=== PATIENT | male | born 1985 | race Caucasian/White ===

== ENCOUNTER 2019-01-26 09:39 | Inpatient (IN) | payer OTHER ==
[2019-01-26 11:22] VITALS: BMI 18.4
--- NOTE | 2019-01-26 12:49 | HP ---
CIWA Score Nausea/Vomitin Muscle Tremors: 2 Anxiety: 2 Agitation: 2 Paroxysmal Sweats: 1-Minimal Palms Moist Orientation: 0-Oriented Tacttile Disturbances: 1-Very Mild Itch/Numbness Auditory Disturbances: 1-Very Mild Visual Disturbances: 0-None Headache: 2-Mild CIWA-Ar Total Score: 13 - Admission Criteria [facility] Guidelines: Admission for Medically Managed Detox: Requires at least one of the followin. CIWA greater than 12 2. Seizures within the past 24 hours 3. Delirium tremens within the past 24 hours 4. Hallucinations within the past 24 hours 5. Acute intervention needed for co occurring medical disorder 6. Acute intervention needed for co occurring psychiatric disorder 7. Severe withdrawal that cannot be handled at a lower level of care (continued vomiting, continued diarrhea, abnormal vital signs) requiring intravenous medication and/or fluids 8. Admission ROS S - HPI Chief Complaint: i need help to stop drinking alcohol,heroin anused,marijuana,anf mmtp 140 mgs/ day Allergies/Adverse Reactions: Allergies Allergy/AdvReac Type Severity Reaction Status Date / Time Fish Containing Products Allergy Severe Difficulty Verified 01/26/19 11:05 Breathing No Known Drug Allergies Allergy Verified 01/26/19 13:20 History of Present Illness: this 33 years olfd male with alcohol,marijuana dependence,heroin abused,mmttp 140 mgs/day withdrawal symptom, seizure last 06/26 nicotine dependence 12/pack/ requesting gum weight loss ptsd,anxiety,depression,addh, no significant period of sobriety Exam Limitations: No Limitations - Ebola screening Have you traveled outside of the country in the last 21 days: No (N) Have you had contact with anyone from an Ebola affected area: No Do you have a fever: No - Review of Systems Constitutional: Loss of Appetite, Malaise, Night Sweats, Changes in sleep, Unintentional Wgt. Loss EENT: reports: Tearing, Nose Congestion Respiratory: reports: No Symptoms reported Cardiac: reports: No Symptoms Reported GI: reports: Nausea, Vomiting, Abdominal cramping : reports: No Symptoms Reported Musculoskeletal: reports: Back Pain, Joint Pain, Muscle Pain, Joint Stiffness Integumentary: reports: Dryness Neuro: reports: Headache, Tremors Endocrine: reports: No Symptoms Reported Hematology: reports: No Symptoms Reported Psychiatric: reports: No Sypmtoms Reported, Judgement Intact, Mood/Affect Appropiate, Orientated x3, Anxious (ptsd), Depressed, other Other Systems: Reviewed and Negative Patient History - Patient Medical History Hx Anemia: No Hx Asthma: No Hx Chronic Obstructive Pulmonary Disease (COPD): No Hx Cancer: No Hx Cardiac Disorders: No Hx Congestive Heart Failure: No Hx Hypertension: No Hx Hypercholesterolemia: No Hx Pacemaker: No HX Cerebrovascular Accident: No Hx Seizures: Yes (last 06/26) Hx Dementia: No Hx Diabetes: No Hx Gastrointestinal Disorders: No Hx Liver Disease: No Hx Genitourinary Disorders: No Hx Sexually Transmitted Disorders: No Hx Renal Disease (ESRD): No Hx Thyroid Disease: No Hx Human Immunodeficiency Virus (HIV): No (last 01/25 negative) Hx Hepatitis C: No Hx Depression: Yes (anxeity,ptsd,adhd,insomnia) Hx Suicide Attempt: No Hx Bipolar Disorder: No Hx Schizophrenia: No Other Medical History: no suicidal,no homicidal - PPD History Previous Implant?: Yes Documented Results: Negative w/o proof Implanted On Prior [facility] Admission?: No PPD to be Administered?: Yes - Smoking Cessation Smoking history: Current every day smoker Have you smoked in the past 12 months: Yes Aproximately how many cigarettes per day: 10 Cigars Per Day: 0 Hx Chewing Tobacco Use: No Initiated information on smoking cessation: Yes 'Breaking Loose' booklet given: 01/26/19 - Substance & Tx. History Hx Alcohol Use: Yes Hx Substance Use: Yes Substance Use Type: Alcohol, Heroin, Marijuana Hx Substance Use Treatment: Yes ([facility] 01/25 completed) - Substances abused Heroin Substance route: Inhalation Frequency: Daily Amount used: 3-4 bags per day Age of first use: 15 Date of last use: 01/25/19 Alcohol Substance route: Oral Frequency: Daily Amount used: 1pint of vodka/ 2 of 6 packs of 12 ozs of beer Age of first use: 12 Date of last use: 01/26/19 Marijuana/Hashish Substance route: Smoking Frequency: Daily Amount used: 20$ Age of first use: 12 Date of last use: 01/26/19 Family Disease History - Family Disease History Family Disease History: Other: Father (alcohol) Admission Physical Exam [facility] - Vital Signs Vital Signs: Vital Signs - 24 hr 01/26/19 01/26/19 11:18 11:53 Temperature 98.4 F 98.4 F Pulse Rate 78 78 Respiratory 20 20 Rate Blood Pressure 104/66 104/66 - Physical General Appearance: Yes: Moderate Distress, Tremorous, Irritable, Sweating, Anxious HEENTM: Yes: Normocephalic, SHAN[place]N, Pharynx Normal Respiratory: Yes: Lungs Clear, Normal Breath Sounds, No Respiratory Distress Neck: Yes: Within Normal Limits, Supple, Trachea in good position Breast: Yes: Within Normal Limits Cardiology: Yes: Within Normal Limits, Regular Rhythm, Regular Rate, S1, S2 Abdominal: Yes: Within Normal Limits, Normal Bowel Sounds, Non Tender, Flat, Soft Genitourinary: Yes: Within Normal Limits Back: Yes: Within Normal Limits, Normal Inspection, Muscle Spasm Musculoskeletal: Yes: full range of Motion, Back pain, Muscle Pain Extremities: Yes: Within Normal Limits, Normal Range of Motion, Tremors Neurological: Yes: obstetric assistant II-XII NML intact, Fully Oriented, Alert, Motor Strength 5/5 Integumentary: Yes: Dry, Rash (furunculitis) Lymphatic: Yes: Within Normal Limits - Diagnostic (1) Alcohol dependence with uncomplicated withdrawal Current Visit: Yes Status: Acute (2) Cannabis dependence Current Visit: Yes Status: Chronic (3) Heroin abuse Current Visit: Yes Status: Acute (4) Methadone maintenance therapy patient Current Visit: Yes Status: Acute (5) Seizure Current Visit: Yes Status: Acute (6) Dehydration Current Visit: Yes Status: Acute (7) Weight loss Current Visit: Yes Status: Acute (8) Furunculosis Current Visit: Yes Status: Acute Cleared for Admission [facility] - Detox or Rehab [facility] Level of Care: Medically Managed Detox Regimen/Protocol: Librium Breathalyzer - Breathalyzer Breathalyzer: 0 Urine Drug Screen - Test Device Lot number: [id number] Expiration date: 10/09/20 - Control Is test valid?: Yes - Results Drug screen NEGATIVE: No Urine drug screen results: THC-Marijuana, MTD-Methadone, BZO-Benzodiazepines Inpatient Rehab Admission - Rehab Decision to Admit Inpatient rehab admission?: No
[2019-01-26] MEDS ORDERED: chlordiazePOXIDE HCL 25 MG CAPSULE PO PRN (13:02)
[2019-01-26] MEDS ORDERED: MAG HYDROX/AL HYDROX/SIMETH 30 ML UNIT-DOSE CUP PO PRN (13:02)
[2019-01-26] MEDS ORDERED: MAGNESIUM CITRATE 300 ML BOTTLE PO PRN (13:02)
[2019-01-26] MEDS ORDERED: MENTHOL/PHENOL 1 EACH UD MM PRN (13:02)
[2019-01-26] MEDS ORDERED: METHOCARBAMOL 500 MG TABLET PO PRN (13:02)
[2019-01-26] MEDS ORDERED: IBUPROFEN 400 MG TABLET (FP) PO PRN (13:02)
[2019-01-26] MEDS ORDERED: MAGNESIUM HYDROX 2400MG/30ML ORAL SUSPENSION 30 ML CUP PO PRN (13:02)
[2019-01-26] MEDS ORDERED: hydrOXYzine PAMOATE 25 MG CAPSULE (FP) PO PRN (13:02)
[2019-01-26] MEDS ORDERED: BISMUTH SUBSALICYLATE 524 MG/30 ML UD PO PRN (13:02)
[2019-01-26] MEDS ORDERED: ACETAMINOPHEN 325 MG TABLET (FP) PO PRN (13:02)
--- NOTE | 2019-01-26 14:43 | CONSULT ---
[facility] Psychiatric Consult - Data Date of interview: 01/26/19 Admission source: [facility] Identifying data: First admission to [facility] for this 33 y/o male from [place] ancestry self-referred for detoxification (alcohol, cannabis, heroin ). Examined on . Patient is single, a father of one, homeless, unemployed and deprived of income. Substance Abuse History: Confirmed by the patient in this session. Details in current [facility] report as follows : Smoking history: Current every day smoker. Have you smoked in the past 12 months: Yes. Aproximately how many cigarettes per day: 10. Cigars Per Day: 0. Hx Chewing Tobacco Use: No. Initiated information on smoking cessation: Yes. 'Breaking Loose' booklet given: . - Substance & Tx. History. Hx Alcohol Use: Yes. Hx Substance Use: Yes. Substance Use Type: Alcohol, Heroin, Marijuana. Hx Substance Use Treatment: Yes ([facility] 01/25 completed). - Substances abused. Heroin. Substance route: Inhalation. Frequency: Daily. Amount used: 3-4 bags per day. Age of first use: 15. Date of last use: 01/25/19. Alcohol. Substance route: Oral. Frequency: Daily. Amount used: 1pint of vodka/ 2 of 6 packs of 12 ozs of beer. Age of first use: 12. Date of last use: 01/26/19. Marijuana/ Hashish. Substance route: Smoking. Frequency: Daily. Amount used: 20$. Age of first use: 12. Date of last use: 01/26/19 Medical History: Patient endorses good general health. History of dislocation of right shoulder and withdrawal-related seizures. Psychiatric History: No reported history of psychiatric hospitalizations. Patient is currently on methadone maintenance (140 mg/day) at the [facility] program in the [place]. Mr Lee sees a private psychiatrist for medication management (remeron 45 mg/hs + adderall and clonazepam (doses not recalled) and psychotherapy. Diagnosed with Anxiety Disorder, MDD, ADHD and PTSD. Patient denies history of suicide attempts. Physical/Sexual Abuse/Trauma History: Heavy stressors : recent deaths (one brother was allegedly murdered in 2010, several friends have of drug overdoes), history of incarceration (patient served six consecutive years in [facility]), homelessness, estrangement from relatives, financial difficulties, lack of vocational slills, chronic unemployment and addictions. Additional Comment: Urine drug screen results: THC-Marijuana, MTD-Methadone, BZO -Benzodiazepines. Noted. Mental Status Exam - Mental Status Exam Alert and Oriented to: Time, Place, Person Cognitive Function: Good Patient Appearance: Unkempt, Disheveled Mood: Nervous, Withdrawn, Anxious Affect: Mood Congruent, Constricted Patient Behavior: Fatigued, Appropriate, Cooperative Speech Pattern: Clear Voice Loudness: Normal Thought Process: Goal Oriented Thought Disorder: Not Present Hallucinations: Denies Suicidal Ideation: Denies Homicidal Ideation: Denies Insight/Judgement: Poor Sleep: Poorly, Difficulty falling asleep Appetite: Good Muscle strength/Tone: Normal Gait/Station: Normal Psychiatric Findings - Problem List ([place] 1, 2,3) (1) Alcohol dependence with uncomplicated withdrawal Current Visit: Yes Status: Acute (2) Opioid dependence on agonist therapy Current Visit: Yes Status: Chronic (3) Cannabis dependence Current Visit: Yes Status: Chronic (4) Substance induced mood disorder Current Visit: Yes Status: Chronic (5) Nicotine dependence Current Visit: Yes Status: Chronic (6) History of attention deficit hyperactivity disorder (ADHD) Current Visit: Yes Status: Chronic (7) History of posttraumatic stress disorder (PTSD) Current Visit: Yes Status: Chronic (8) Insomnia Current Visit: Yes Status: Chronic (9) Non-compliance Current Visit: Yes Status: Chronic - Initial Treatment Plan Initial Treatment Plan: Psychoeducation. Sleep hygiene. Detoxification. AA/NA meetings. Groups. Patient reports that he has NOT taken his medications for more than a week (belongings reportedly stolen). Remeron 15 mg po hs (reduced). Side effects/benefits discussed. verbal consent given to MD. Cabello.
[2019-01-26] MEDS: GABAPENTIN 400 MG CAPSULE (FP) PO SCH ×2 (15:07→22:33)
[2019-01-26] MEDS: BACITRACIN 0.9 GM PACKET TP SCH ×2 (15:07→22:35)
[2019-01-26] MEDS: NICOTINE POLACRILEX 2 MG GUM BUC PRN (15:14)
[2019-01-26 18:08] LABS: URINE APPEARANCE CLEAR; URINE BILIRUBIN NEGATIVE (NEGATIVE); URINE COLOR YELLOW; URINE GLUCOSE (UA) NEGATIVE (NEGATIVE); URINE KETONE NEGATIVE (NEGATIVE); URINE LEUK ESTERASE NEGATIVE (NEGATIVE); URINE NITRITE NEGATIVE (NEGATIVE); URINE PROTEIN NEGATIVE (NEGATIVE); URINE UROBILINOGEN 0.2 mg/dL (0.2-1.0)
[2019-01-26] MEDS: chlordiazePOXIDE HCL 25 MG CAPSULE PO SCH ×2 (18:18→22:33)
[2019-01-26 18:21] LABS: HEMATOCRIT 43.9 % (35.4-49); HEMOGLOBIN 14.5 GM/dL (11.7-16.9); MCH 30.2 pg (25.7-33.7); MEAN CELL VOLUME 91.6 fl (80-96); MEAN PLT VOLUME 9.5 fl (7.5-11.1); PLATELET COUNT 315 K/MM3 (134-434); RBC 4.79 M/mm3 (4.00-5.60); RDW 14.6 % (11.9-15.9); WHITE BLOOD COUNT 8.8 K/mm3 (4.0-10.0)
[2019-01-26 18:26] LABS: ALBUMIN 4.1 g/dl (3.4-5.0); BILIRUBIN,TOTAL 0.3 mg/dL (0.2-1); CALCIUM 9.3 mg/dL (8.5-10.1); CREATININE 0.7 mg/dL (0.55-1.3); POTASSIUM 4.5 mmol/L (3.5-5.1); TOT PROT 7.4 g/dl (6.4-8.2)
[2019-01-26] MEDS: DOXYCYCLINE HYCLATE 100 MG TABLET PO SCH (19:19)
[2019-01-26] MEDS: THIAMINE HCL 100 MG TABLET (FP) PO SCH (22:34)
[2019-01-26] MEDS: MIRTAZAPINE 15 MG TABLET (FP) PO SCH (22:34)
[2019-01-27] MEDS ORDERED: METHADONE HCL 10 MG TABLET ONE (04:44)
[2019-01-27] MEDS ORDERED: METHADONE HCL 40 MG DISPERSABLE TABLET ONE (04:45)
[2019-01-27] MEDS: METHADONE 120 MG, METHADONE 20 MG PO SCH (06:00)
[2019-01-27] MEDS: DOXYCYCLINE HYCLATE 100 MG TABLET PO SCH ×2 (06:00→17:43)
[2019-01-27] MEDS: chlordiazePOXIDE HCL 25 MG CAPSULE PO SCH ×4 (06:00→22:27)
[2019-01-27] MEDS ORDERED: METHADONE HCL 10 MG TABLET PO SCH (06:00)
[2019-01-27] MEDS: GABAPENTIN 400 MG CAPSULE (FP) PO SCH ×3 (07:53→22:26)
--- NOTE | 2019-01-27 09:56 | PN ---
S CIWA - CIWA Score Nausea/Vomitin-No Nausea/No Vomiting Muscle Tremors: 4-Moderate,w/Arms Extend Anxiety: 4-Mod. Anxious/Guarded Agitation: 4-Moderately Restless Paroxysmal Sweats: 3 Orientation: 0-Oriented Tacttile Disturbances: 0-None Auditory Disturbances: 0-None Visual Disturbances: 0-None Headache: 0-None Present CIWA-Ar Total Score: 15 BHS Progress Note (SOAP) Subjective: restless sweats shakes interrupted sleep chills Objective: 01/27/19 09:55 Vital Signs Temperature 97.9 F 01/27/19 09:26 Pulse Rate 105 H 01/27/19 09:26 Respiratory Rate 18 01/27/19 09:26 Blood Pressure 106/73 01/27/19 09:26 O2 Sat by Pulse Oximetry (%) Laboratory Tests 01/26/19 01/26/19 01/26/19 13:00 13:00 13:00 WBC 8.8 RBC 4.79 Hgb 14.5 Hct 43.9 MCV 91.6 MCH 30.2 MCHC 33.0 RDW 14.6 Plt Count 315 MPV 9.5 Sodium 139 Potassium 4.5 Chloride 100 Carbon Dioxide 34 H Anion Gap 5 L BUN 7 Creatinine 0.7 Est GFR (CKD-EPI)AfAm 144.72 Est GFR (CKD-EPI)NonAf 124.87 Random Glucose 77 Calcium 9.3 Total Bilirubin 0.3 AST 19 ALT 32 Alkaline Phosphatase 79 Total Protein 7.4 Albumin 4.1 Urine Color Urine Appearance Urine pH Ur Specific [place] Urine Protein Urine Glucose (UA) Urine Ketones Urine Blood Urine Nitrite Urine Bilirubin Urine Urobilinogen Ur Leukocyte Esterase RPR Titer Nonreactive HIV 1&2 Antibody Screen HIV P24 Antigen 01/26/19 01/26/19 13:00 15:28 WBC RBC Hgb Hct MCV MCH MCHC RDW Plt Count MPV Sodium Potassium Chloride Carbon Dioxide Anion Gap BUN Creatinine Est GFR (CKD-EPI)AfAm Est GFR (CKD-EPI)NonAf Random Glucose Calcium Total Bilirubin AST ALT Alkaline Phosphatase Total Protein Albumin Urine Color Yellow Urine Appearance Clear Urine pH 7.0 Ur Specific [place] 1.005 L Urine Protein Negative Urine Glucose (UA) Negative Urine Ketones Negative Urine Blood Negative Urine Nitrite Negative Urine Bilirubin Negative Urine Urobilinogen 0.2 Ur Leukocyte Esterase Negative RPR Titer HIV 1&2 Antibody Screen Negative HIV P24 Antigen Negative labs noted aaox3 ambulating no acute distress Assessment: 01/27/19 09:55 withdrawal sx Plan: continue detox increase fluids
[2019-01-27] MEDS: BACITRACIN 0.9 GM PACKET TP SCH ×2 (10:40→22:26)
[2019-01-27] MEDS: PRENATAL VITAMINS W/ FOLIC ACID TABLET (FP) PO SCH (10:40)
[2019-01-27] MEDS: ACETAMINOPHEN 325 MG TABLET (FP) PO PRN (10:42)
[2019-01-27] MEDS ORDERED: PNEUMOCOCCAL 23 VACCINE 0.5 ML VIAL IM ONE (12:00)
[2019-01-27] MEDS ORDERED: PNEUMOC 13-VAL CONJ-DIP CRM/PF 0.5 ML DISP.SYRIN IM ONE (12:00)
--- NOTE | 2019-01-27 12:14 | EKG ---
Test Reason : Blood Pressure : / mmHG Vent. Rate : 060 BPM Atrial Rate : 060 BPM P-R Int : 124 ms QRS Dur : 096 ms QT Int : 424 ms P-R-T Axes : 078 089 076 degrees QTc Int : 424 ms NORMAL SINUS RHYTHM WITH SINUS ARRHYTHMIA EARLY REPOLARIZATION NORMAL ECG NO PREVIOUS ECGS AVAILABLE Confirmed by MD Sean, Blair ([id number]) on 01/27/2019 12:14:26 PM Referred By: Confirmed By:Blair Estrada MD
[2019-01-27] MEDS: NICOTINE POLACRILEX 2 MG GUM BUC PRN (14:35)
[2019-01-27] MEDS: THIAMINE HCL 100 MG TABLET (FP) PO SCH (22:27)
[2019-01-27] MEDS: MELATONIN 5 MG TABLETS PO PRN (22:27)
[2019-01-27] MEDS: MIRTAZAPINE 15 MG TABLET (FP) PO SCH (22:27)
[2019-01-28] MEDS ORDERED: METHADONE HCL 10 MG TABLET ONE (04:34)
[2019-01-28] MEDS ORDERED: METHADONE HCL 40 MG DISPERSABLE TABLET ONE (04:35)
[2019-01-28] MEDS: chlordiazePOXIDE HCL 25 MG CAPSULE PO SCH ×2 (06:15→10:28)
[2019-01-28] MEDS: METHADONE 120 MG, METHADONE 20 MG PO SCH (06:15)
[2019-01-28] MEDS: GABAPENTIN 400 MG CAPSULE (FP) PO SCH ×3 (07:31→22:15)
[2019-01-28] MEDS: DOXYCYCLINE HYCLATE 100 MG TABLET PO SCH ×2 (07:31→22:14)
--- NOTE | 2019-01-28 10:23 | PN ---
[facility] CIWA - CIWA Score Nausea/Vomitin-No Nausea/No Vomiting Muscle Tremors: 3 Anxiety: 2 Agitation: 3 Paroxysmal Sweats: 2 Orientation: 0-Oriented Tacttile Disturbances: 0-None Auditory Disturbances: 0-None Visual Disturbances: 0-None Headache: 0-None Present CIWA-Ar Total Score: 10 S Progress Note (SOAP) Subjective: headache restless Objective: 01/28/19 10:22 Vital Signs Temperature 97.9 F 01/28/19 07:44 Pulse Rate 64 01/28/19 07:44 Respiratory Rate 18 01/28/19 07:44 Blood Pressure 112/77 01/28/19 07:44 O2 Sat by Pulse Oximetry (%) Laboratory Tests 01/26/19 01/26/19 01/26/19 13:00 13:00 13:00 WBC 8.8 RBC 4.79 Hgb 14.5 Hct 43.9 MCV 91.6 MCH 30.2 MCHC 33.0 RDW 14.6 Plt Count 315 MPV 9.5 Sodium 139 Potassium 4.5 Chloride 100 Carbon Dioxide 34 H Anion Gap 5 L BUN 7 Creatinine 0.7 Est GFR (CKD-EPI)AfAm 144.72 Est GFR (CKD-EPI)NonAf 124.87 Random Glucose 77 Calcium 9.3 Total Bilirubin 0.3 AST 19 ALT 32 Alkaline Phosphatase 79 Total Protein 7.4 Albumin 4.1 Urine Color Urine Appearance Urine pH Ur Specific [place] Urine Protein Urine Glucose (UA) Urine Ketones Urine Blood Urine Nitrite Urine Bilirubin Urine Urobilinogen Ur Leukocyte Esterase RPR Titer Nonreactive HIV 1&2 Antibody Screen HIV P24 Antigen 01/26/19 01/26/19 13:00 15:28 WBC RBC Hgb Hct MCV MCH MCHC RDW Plt Count MPV Sodium Potassium Chloride Carbon Dioxide Anion Gap BUN Creatinine Est GFR (CKD-EPI)AfAm Est GFR (CKD-EPI)NonAf Random Glucose Calcium Total Bilirubin AST ALT Alkaline Phosphatase Total Protein Albumin Urine Color Yellow Urine Appearance Clear Urine pH 7.0 Ur Specific [place] 1.005 L Urine Protein Negative Urine Glucose (UA) Negative Urine Ketones Negative Urine Blood Negative Urine Nitrite Negative Urine Bilirubin Negative Urine Urobilinogen 0.2 Ur Leukocyte Esterase Negative RPR Titer HIV 1&2 Antibody Screen Negative HIV P24 Antigen Negative aaox3 ambulating no acute distress Assessment: 01/28/19 10:22 mild withdrawal sx Plan: continue detox with revised detox medication as per pt request tylenol/motrin prn increase fluids d/c in am as per pt request
[2019-01-28] MEDS: BACITRACIN 0.9 GM PACKET TP SCH ×2 (10:28→22:15)
[2019-01-28] MEDS: PRENATAL VITAMINS W/ FOLIC ACID TABLET (FP) PO SCH (10:29)
[2019-01-28] MEDS ORDERED: chlordiazePOXIDE HCL 10 MG CAPSULE PO PRN (17:00)
[2019-01-28] MEDS: chlordiazePOXIDE HCL 10 MG CAPSULE PO SCH ×2 (17:47→22:15)
[2019-01-28] MEDS: THIAMINE HCL 100 MG TABLET (FP) PO SCH (22:15)
[2019-01-28] MEDS: MIRTAZAPINE 15 MG TABLET (FP) PO SCH (22:15)
[2019-01-28] MEDS: MELATONIN 5 MG TABLETS PO PRN (22:15)
[2019-01-28] MEDS: ACETAMINOPHEN 325 MG TABLET (FP) PO PRN (22:17)
[2019-01-29] MEDS ORDERED: METHADONE HCL 40 MG DISPERSABLE TABLET ONE (04:22)
[2019-01-29] MEDS ORDERED: METHADONE HCL 10 MG TABLET ONE (04:22)
[2019-01-29] MEDS: METHADONE 120 MG, METHADONE 20 MG PO SCH (06:43)
[2019-01-29] MEDS: DOXYCYCLINE HYCLATE 100 MG TABLET PO SCH (06:43)
[2019-01-29] MEDS: chlordiazePOXIDE HCL 10 MG CAPSULE PO SCH (06:44)
[2019-01-29] MEDS: GABAPENTIN 400 MG CAPSULE (FP) PO SCH (06:44)
[2019-01-29 07:55] VITALS: BP 108/60; PULSE 78; TEMP 98.1
[2019-01-29] MEDS ORDERED: chlordiazePOXIDE HCL 10 MG CAPSULE PO SCH (17:00)
== END 2019-01-29 08:53 | disposition home or self-care (01) | DRG 773 ==
LOC: YASAS 09:39 → Y6N 13:03
PROVIDERS: ADMIT Surgery; ATTEND Surgery
PROC: HZ2ZZZZ Detoxification Services for Substance Abuse Treatment (ICD-10-PCS; principal; 2019-01-26)
DX: F10.230 Alcohol dependence with withdrawal, uncomplicated (principal); F11.20 Opioid dependence, uncomplicated; F12.20 Cannabis dependence, uncomplicated; F17.210 Nicotine dependence, cigarettes, uncomplicated; F19.24 Other psychoactive substance dependence with psychoactive substance-induced mood disorder; L02.92 Furuncle, unspecified; G47.00 Insomnia, unspecified; R63.4 Abnormal weight loss; Z68.1 Body mass index [BMI] 19.9 or less, adult; E86.0 Dehydration; Z86.59 Personal history of other mental and behavioral disorders; Z86.69 Personal history of other diseases of the nervous system and sense organs; Z91.013 Allergy to seafood; Z91.19 Patient's noncompliance with other medical treatment and regimen
CPT/HCPCS: 36415; 80053; 81003; 85027; 86593; 87389; 93005; 93010

== ENCOUNTER 2022-06-25 14:33 | Inpatient (IN) | payer OTHER ==
[2022-06-25 15:19] VITALS: BMI 20.5
[2022-06-25] MEDS ORDERED: LOPERAMIDE HCL 2 MG CAPSULE PO PRN (17:40)
[2022-06-25] MEDS ORDERED: DICYCLOMINE HCL 10 MG CAPSULE PO PRN (17:40)
[2022-06-25] MEDS ORDERED: MAGNESIUM HYDROX 2400MG/30ML ORAL SUSPENSION 30 ML CUP PO PRN (17:40)
[2022-06-25] MEDS ORDERED: NALOXONE HCL 0.4 MG/ML VIAL IM PRN (17:40)
[2022-06-25] MEDS ORDERED: MAG HYDROX/AL HYDROX/SIMETH 30 ML UNIT-DOSE CUP PO PRN (17:40)
[2022-06-25] MEDS ORDERED: BENZOCAINE/MENTHOL (CHLORASEPTIC ) LOZENGE MM PRN (17:40)
[2022-06-25] MEDS ORDERED: MAGNESIUM CITRATE 300 ML BOTTLE PO PRN (17:40)
[2022-06-25] MEDS ORDERED: ACETAMINOPHEN 325 MG TABLET (FP) PO PRN ×2 (17:40)
[2022-06-25] MEDS ORDERED: ONDANSETRON *ODT* 4 MG TABLET SL PRN (17:40)
[2022-06-25] MEDS ORDERED: NALOXONE HCL (KLOXXADO) 8 MG SPRAY NS PRN (17:40)
[2022-06-25] MEDS ORDERED: MELATONIN 5 MG TABLETS PO PRN (17:40)
[2022-06-25] MEDS ORDERED: IBUPROFEN 400 MG TABLET (FP) PO PRN (17:40)
[2022-06-25] MEDS ORDERED: BISMUTH SUBSALICYLATE 524 MG/30 ML PO PRN (17:40)
[2022-06-25] MEDS ORDERED: IBUPROFEN 600 MG TABLET (FP) PO PRN (17:40)
[2022-06-25] MEDS ORDERED: diazePAM 5 MG TABLET PO PRN (17:44)
[2022-06-25] MEDS ORDERED: P-EPHED 60MG/TRIPROLIDI 2.5MG TABLET PO PRN (18:52)
[2022-06-25] MEDS: GABAPENTIN 400 MG CAPSULE PO SCH (22:40)
[2022-06-25] MEDS: SULFAMETHOXAZOLE/TRIMETHOPRIM 800MG/160MG D.S. TABLET PO SCH (22:40)
[2022-06-25] MEDS: THIAMINE HCL 100 MG TABLET (FP) PO SCH (22:40)
[2022-06-25] MEDS: BACITRACIN 0.9 GM PACKET TP SCH (22:40)
[2022-06-25] MEDS: NICOTINE 10 MG CARTRIDGE (INHALER) IH PRN (22:58)
[2022-06-26] MEDS: GABAPENTIN 400 MG CAPSULE PO SCH ×3 (05:22→22:04)
[2022-06-26] MEDS: NICOTINE 10 MG CARTRIDGE (INHALER) IH PRN ×3 (08:06→23:01)
[2022-06-26] MEDS ORDERED: methaDONE HCL 10 MG TABLET PO SCH (09:30)
[2022-06-26] MEDS ORDERED: diazePAM 5 MG TABLET PO PRN (09:32)
[2022-06-26] MEDS: BACITRACIN 0.9 GM PACKET TP SCH ×2 (09:54→22:03)
[2022-06-26] MEDS: SULFAMETHOXAZOLE/TRIMETHOPRIM 800MG/160MG D.S. TABLET PO SCH ×2 (09:54→22:03)
[2022-06-26] MEDS: METHOCARBAMOL 500 MG TABLET PO PRN (09:55)
[2022-06-26] MEDS: PRENATAL VITAMINS W/ FOLIC ACID TABLET (FP) PO SCH (10:16)
[2022-06-26] MEDS: diazePAM 5 MG TABLET PO SCH ×3 (10:16→22:04)
[2022-06-26] MEDS: hydrOXYzine PAMOATE 25 MG CAPSULE (FP) PO PRN (10:17)
[2022-06-26 15:27] LABS: HEMATOCRIT 41.1 % (35.4-49); HEMOGLOBIN 13.5 GM/dL (11.7-16.9); MCH 29.6 pg (25.7-33.7); MCHC 32.9 g/dl (32.0-35.9); MEAN PLT VOLUME 10.4 fl (7.5-11.1); PLATELET COUNT 257 10^3/uL (134-434); RBC 4.56 M/mm3 (4.00-5.60); RDW 15.7 % (11.9-15.9); WHITE BLOOD COUNT 10.9 K/mm3 (4.0-10.0)
[2022-06-26 17:52] LABS: ALBUMIN 3.4 g/dl (3.4-5.0)
[2022-06-26 17:56] LABS: CALCIUM 8.6 mg/dL (8.5-10.1)
[2022-06-26 17:57] LABS: BLOOD UREA NITROGEN 17.2 mg/dL (7-18)
[2022-06-26 17:59] LABS: BILIRUBIN,TOTAL 0.2 mg/dL (0.2-1)
[2022-06-26 18:00] LABS: TOT PROT 6.3 g/dl (6.4-8.2)
[2022-06-26 18:02] LABS: CREATININE 0.7 mg/dL (0.55-1.3)
[2022-06-26] MEDS: THIAMINE HCL 100 MG TABLET (FP) PO SCH (22:03)
[2022-06-26] MEDS: DOXEPIN HCL 25 MG CAPSULE PO SCH (22:04)
[2022-06-27] MEDS: diazePAM 5 MG TABLET PO SCH ×4 (05:34→22:05)
[2022-06-27] MEDS: GABAPENTIN 400 MG CAPSULE PO SCH ×3 (06:09→22:03)
[2022-06-27] MEDS: PRENATAL VITAMINS W/ FOLIC ACID TABLET (FP) PO SCH (10:36)
[2022-06-27] MEDS: hydrOXYzine PAMOATE 25 MG CAPSULE (FP) PO PRN (10:36)
[2022-06-27] MEDS: METHOCARBAMOL 500 MG TABLET PO PRN (10:36)
[2022-06-27] MEDS: SULFAMETHOXAZOLE/TRIMETHOPRIM 800MG/160MG D.S. TABLET PO SCH ×2 (10:36→22:04)
[2022-06-27] MEDS: NICOTINE 10 MG CARTRIDGE (INHALER) IH PRN ×2 (10:39→14:02)
[2022-06-27] MEDS: BACITRACIN 15 GM TUBE TOPICAL OINTMENT TP SCH ×2 (12:03→22:05)
[2022-06-27] MEDS: BACITRACIN 0.9 GM PACKET TP SCH (12:08)
[2022-06-27] MEDS: THIAMINE HCL 100 MG TABLET (FP) PO SCH (22:04)
[2022-06-27] MEDS: DOXEPIN HCL 25 MG CAPSULE PO SCH (22:04)
[2022-06-28] MEDS: GABAPENTIN 400 MG CAPSULE PO SCH (05:22)
[2022-06-28] MEDS ORDERED: diazePAM 5 MG TABLET PO SCH (06:00)
[2022-06-28 06:10] VITALS: BP 140/79; RESP 18
[2022-06-28 06:42] VITALS: PULSE 70; TEMP 96.2
[2022-06-28] MEDS: SULFAMETHOXAZOLE/TRIMETHOPRIM 800MG/160MG D.S. TABLET PO SCH (10:31)
[2022-06-28] MEDS: hydrOXYzine PAMOATE 25 MG CAPSULE (FP) PO PRN (10:31)
[2022-06-28] MEDS: PRENATAL VITAMINS W/ FOLIC ACID TABLET (FP) PO SCH (10:31)
[2022-06-28] MEDS: METHOCARBAMOL 500 MG TABLET PO PRN (10:31)
[2022-06-28] MEDS: BACITRACIN 15 GM TUBE TOPICAL OINTMENT TP SCH (10:32)
[2022-06-28] MEDS: NICOTINE 10 MG CARTRIDGE (INHALER) IH PRN (10:47)
[2022-06-29] MEDS ORDERED: diazePAM 5 MG TABLET PO SCH (06:00)
[2022-06-30] MEDS ORDERED: diazePAM 5 MG TABLET PO ONE (06:00)
== END 2022-06-28 11:40 | disposition home or self-care (01) | DRG 773 ==
LOC: YASAS 14:33 → Y6N 18:00
PROVIDERS: ADMIT Allergy & Immunology; ATTEND Surgery
PROC: HZ2ZZZZ Detoxification Services for Substance Abuse Treatment (ICD-10-PCS; principal; 2022-06-25)
DX: F10.230 Alcohol dependence with withdrawal, uncomplicated (principal); F13.230 Sedative, hypnotic or anxiolytic dependence with withdrawal, uncomplicated; F11.20 Opioid dependence, uncomplicated; F14.20 Cocaine dependence, uncomplicated; F12.20 Cannabis dependence, uncomplicated; F17.210 Nicotine dependence, cigarettes, uncomplicated; F43.10 Post-traumatic stress disorder, unspecified; F90.9 Attention-deficit hyperactivity disorder, unspecified type; G40.909 Epilepsy, unspecified, not intractable, without status epilepticus; Z62.810 Personal history of physical and sexual abuse in childhood; Z87.820 Personal history of traumatic brain injury; Z56.0 Unemployment, unspecified; Z59.00 Homelessness unspecified
CPT/HCPCS: 36415; 80053; 85027; 86780; 87811; C9803-CS; U0003; U0005